=== PATIENT | male | born 1970 | race Caucasian/White ===

== ENCOUNTER 2021-04-24 17:55 | Outpatient (CLI) | payer OTHER, SELFPAY ==
[2021-04-24 18:25] VITALS: BP 159/105; PULSE 109; RESP 16; TEMP 37.1; O2SAT 100; BMI 24.3
[2021-04-24] MEDS: 0.9% Saline Lock 10 ML Syringe IV (18:32)
[2021-04-24 18:56] VITALS: BP 154/94; PULSE 97; RESP 16; TEMP 37.2; O2SAT 100
[2021-04-24 19:53] VITALS: BP 171/95; PULSE 94; RESP 16; TEMP 37.1; O2SAT 100
== END 2021-04-24 23:59 | disposition home or self-care (01) ==
LOC: MS3OUT 17:56 → MS3 17:57
PROVIDERS: Visit Provider Nurse Practitioner Adult Health
DX: Z23 Encounter for immunization (principal); E11.9 Type 2 diabetes mellitus without complications; U07.1 COVID-19
CPT/HCPCS: J7050; M0243; A4216; Q0244

== ENCOUNTER 2021-11-10 09:36 | Emergency (ER) | payer OTHER, SELFPAY ==
[2021-11-10 09:37] VITALS: BP 194/119; PULSE 96; RESP 18; TEMP 36.6; O2SAT 100; BMI 24.8
--- NOTE | 2021-11-10 09:54 | NURSING ---
NO OLD EKGS
--- NOTE | 2021-11-10 09:57 | RAD_ITS ---
STUDY: X-RAY CHEST REASON FOR EXAM: Male, 51 years old. Chest pain TECHNIQUE: Single AP portable view of the chest. COMPARISON: None. FINDINGS: EKG electrodes are seen. Hyperinflation. The lungs are clear. Scattered calcified granulomas. There is no demonstrated pleural abnormality. Normal size heart. Normal mediastinum and erin. Normal visualized pulmonary arteries. Normal visualized aortic arch and descending thoracic aorta. Normal visualized thoracic spine. Normal visualized ribs, clavicles, and shoulders. There is no demonstrated abnormality of the visualized soft tissue structures of the upper abdomen. RAD/Chest 1 View (Portable) IMPRESSION: Hyperinflation. The lungs are clear. Electronically Signed: Ramez Cheng MD at 10:41 EDT ,
--- NOTE | 2021-11-10 09:57 | EKG12_ITS ---
Test Reason : Blood Pressure : / mmHG Vent. Rate : 083 BPM Atrial Rate : 083 BPM P-R Int : 174 ms QRS Dur : 090 ms QT Int : 356 ms P-R-T Axes : 080 -44 069 degrees QTc Int : 418 ms Normal sinus rhythm Left axis deviation Abnormal ECG Confirmed by YUMIKO SALAS, BRODY ([id number]), rewrite editor DAVIS BENAVIDEZ ([id number]) on 11/12/2021 12:47:40 PM Referred By: Sherita Confirmed By:BRODY CALDERON MD
[2021-11-10 09:58] VITALS: O2SAT 99
[2021-11-10 10:10] LABS: Absolute Lymphocyte Count 1.45 X10^3/uL (0.83-4.51); Absolute Neutrophil Count 4.2 X10^3/uL (2.0-7.7); Basophil% 1.5 % (0-1); Eosinophil# 0.42 X10^3/uL; Eosinophils% 6.2 % (0-5); Hematocrit 46.3 % (40-54); Hemoglobin 17.2 g/dL (13.0-16.5); Lymphocyte # 1.45 X10^3/ul (0.83-4.51); Lymphocyte % 21.5 % (19-41); Mean Corp Hgb Conc 37.1 g/dL (32-36); Mean Corpuscular Hgb 33.7 pg (27.0-32.0); Mean Corpuscular Volume 90.8 fL (80-94); Mean Platelet Vol. 10.3 fl (6.2-12.0); Monocyte# 0.57 X10^3/uL; Monocyte% 8.5 % (0-10); NRBC Flagged by Analyzer 0 % (0-5); Neutrophil # 4.19 X10^3/uL (2.7-7.7); Neutrophil % 62.2 % (47-70); Platelet Count 258 K/mm3 (150-450); RBC Distribution Width CV 12.4 % (11.6-14.6); RBC Distribution Width SD 41.1 fl (35.1-43.9); White Blood Count 6.7 K/mm3 (4.4-11.0)
--- NOTE | 2021-11-10 10:17 | EDS_ITS ---
HPI History of Present Illness Chief Complaint: Chest Pain Informant: patient Onset/Context/Timing Onset: - (years) Timing: Intermittent and Lasts (seconds to minute or so) Quality: Positive for Aching Location: Left Chest (close to axilla but not into it; no radiation/migration) Current Severity: Gone Maximum Severity: Moderate Worsened By: Nothing Relieved By: Nothing Associated Symptoms: Positive for Dyspnea (a little when pain present); Negative for Nausea, Vomiting, Cough, Lightheadedness or Palpitations Narrative Narrative: Patient has been having these episodes of chest pain that seem random for 15 years, but yesterday they were more frequent and more severe, and he also had an episode this morning so he presents for evaluation. They are left lateral upper chest. He cannot detect a trigger that he can think of, they seem to be random. Often times he will go weeks without anything. He states it almost feels like a discomfort that you have after drinking a lot of caffeine. He also states in the past several weeks he has been having muscle fasciculations in the right calf without edema, some occasional muscle pains, and for a month or 2 some pain in his right buttock radiating into his hamstring but not below. He has a history of diabetes and peripheral neuropathy in both legs/feet. He is a smoker. No known history of heart problems had a negative stress test about 10 years ago or so. [facility] Medical History (Updated 11/10/21 @ 12:[address] Linwood Magallon MD) Diabetes Diabetes mellitus with peripheral autonomic neuropathy Home Medications insulin lispro 100 unit/mL subcutaneous cartridge (Humalog U-100 Insulin) 0 unit subcut TID 04/24/21 [History Last Taken Unknown] lisinopril 10 mg tablet 20 mg PO DAILY 04/24/21 [History Last Taken Unknown] Allergy/AdvReac Type Severity Reaction Status Date / Time codeine Allergy Severe unknown Verified 11/10/21 09:39 clindamycin AdvReac Severe C Diff Verified 11/10/21 09:39 Social History (Updated 11/10/21 @ 10:[address] Linwood Magallon MD) Smoking Status: Current every day smoker tobacco type: cigarettes ROS ROS ED Constitutional Constitutional ED: Denies chills or fever(s) Eyes Eyes: Denies change in vision or diplopia ENT ENT ED: Denies rhinorrhea or sore throat Cardiovascular Cardiovascular: Reports chest pain; Denies leg edema or palpitations Respiratory/Chest Respiratory/Chest: Reports dyspnea; Denies cough Gastrointestinal Gastrointestinal: Denies abdominal pain, diarrhea, nausea or vomiting Genitourinary Genitourinary ED: Denies dysuria or hematuria Musculoskeletal Musculoskeletal: Reports extremity pain; Denies back pain or neck pain Integumentary Denies abscess or rash Neurologic Neurologic: Denies headache(s), paresthesias or weakness Psychiatric Psychiatric: Denies anxiety or suicidal thoughts EXAM Physical Exam Const Vital Signs: 11/10/21 09:37 11/10/21 09:58 11/10/21 10:32 Temperature 97.9 F Temperature Source Temporal Pulse Rate 96 Respiratory Rate 18 Respiratory Effort Normal Non-Labored Blood Pressure 194/119 H Blood Pressure Mean 144 Pulse Ox 100 99 Oxygen Delivery Method Room Air Room Air 11/10/21 11:36 Temperature Temperature Source Pulse Rate 84 Respiratory Rate 14 Respiratory Effort Blood Pressure 165/99 H Blood Pressure Mean 121 Pulse Ox 98 Oxygen Delivery Method Room Air Positive well nourished and well developed General Appearance ED: well developed and NAD HEENT Reports moist mucous membranes normocephalic and atraumatic Eyes PERRL and EOMs intact bilaterally Neck full ROM and supple Resp normal respiratory effort and clear to auscultation bilaterally Cardio regular rate, regular rhythm and no murmurs GI non-tender and non-distended Auscultation: normoactive bowel sounds Palpation: soft Back/Spine no CVA tenderness Back/Spine Narrative: Negative straight leg raises bilaterally General Back: other FROM Extremity normal to inspection Extremity Narrative: No calf tenderness. No palpable cords. No varicosities noted. During exam, patient starts to have minor painless muscle fasciculations in his right calf. 2+/4 dorsalis pedis pulses bilaterally. General Extremety ED: Negative for edema, pulses abnormal or tenderness General Extremity: Negative for edema or pulses abnormal Neuro oriented x3, CN's II-XII intact bilaterally and no sensory deficits noted Sensorium / Orientation: awake and alert Motor Exam: strength 5/5 throughout Skin no rashes or lesions noted and no wounds Heart Score History: Slightly/Non-Suspicious ECG: Normal Age: >45 - <65 years Risk Factors: 1 or 2 Risk Factors Score: 2 MDM MDM MDM Narrative Medical decision making narrative: Patient's EKG is normal except for a left axis, he has no old 1 for comparison, but this is in my opinion very low likelihood to be cardiac. His chest x-ray is normal. Labs and troponin are normal. I reassured him. Regarding his other complaints, his right leg continues to twitch off-and-on in his calf, he has no edema or signs of DVT and I do not think that is what is causing this. I think it is more related to his peripheral neuropathy making his muscles fire, alternatively, I advised him he could eat foods with higher sources of calcium and potassium to see if that helps temporarily, regarding his right buttock pain I do not think it is sciatica, he could have myriad of issues here including sacroiliac dysfunction, piriformis syndrome, etc. and I recommend following up for possible referral to physical therapy if it continues, he is comfortable with this plan. Lab Data Attestation: I reviewed the patient's lab results. Labs: Laboratory Results - last 24 hr 11/10/21 11/10/21 09:55 09:55 WBC 6.7 RBC 5.10 Hgb 17.2 H Hct 46.3 MCV 90.8 MCH 33.7 H MCHC 37.1 H RDW Std Deviation 41.1 RDW Coeff of Thalia 12.4 Plt Count 258 MPV 10.3 Immature Gran % (Auto) 0.100 Neut % (Auto) 62.2 Lymph % (Auto) 21.5 Robertson % (Auto) 8.5 Eos % (Auto) 6.2 H Baso % (Auto) 1.5 H Absolute Neuts (auto) 4.2 Absolute Lymphs (auto) 1.45 Nucleated RBC % 0 Sodium 135 L Potassium 4.7 Chloride 103 Carbon Dioxide 27.0 Anion Gap 5 BUN 17 Creatinine 0.89 Estim Creat Clear Calc 101.39 Est GFR (MDRD) Af Amer 116 Est GFR (MDRD) Non-Af 96 BUN/Creatinine Ratio 19.2 Glucose 277 H Calcium 9.2 Troponin I High Sens 6 Radiography Chest X-Ray - ED: 1 View, Read by ED Physician, No Acute Disease and No Infiltrates Diagnostic Testing: Clinical Impression(s) from Imaging Studies Chest X-Ray 11/10/21 09:57 IMPRESSION: Hyperinflation. The lungs are clear. Electronically Signed: Ramez Cheng MD at 10:41 EDT , Rhythm Strip Rhythm Strip: Sinus Rhythm Rate: 83 Ectopy: None EKG Initial EKG: Attestation: I personally reviewed and interpreted this EKG as follows: Interpretation: Sinus Rhythm, No Acute Injury Pattern and LAFB (otherwise normal) Prior: No Prior Discharge Plan Triage Chief Complaint: Chest Pain ED Provider: Linwood Magallon Dx/Rx/DC Orders Clinical Impression: Left-sided chest pain, Right low back pain, Frequent fasciculation of muscle of extremity, Diabetic peripheral neuropathy Instructions: ED Chest Pain, Noncardiac, ED Sacroiliitis Prescriptions: No Action lisinopril [Prinivil] 10 mg Tablet 20 mg PO DAILY Humalog U-100 Insulin 100 unit/mL Cartridge 0 unit SUBCUT TID Rx Instructions: INSULIN PUMP [facility] [facility] [Primary Care Provider] - 1 Week if not improving Activity Restrictions/Additional Instructions: When next episode occurs if you feel it is not musculoskeletal or related to your pectoral musculature, I may try at least a 2-week trial of [id number] Prilosec or Nexium, 1 pill once a day. Disposition Disposition: Home, Self Care
[2021-11-10 10:31] LABS: Anion Gap 5 (5-15); BUN 17 mg/dL (7-18); BUN/Creat Ratio 19.2 RATIO (10-20); Calcium,Total 9.2 mg/dL (8.5-10.1); Chloride 103 mmol/L (98-107); Creatinine, Serum 0.89 mg/dL (0.70-1.30); EST Glomerular Filtration Rate 96 mL/min (>60); Est Glom Filt Rate - Afr Amer 116 mL/min (>60); Estimated Creatinine Clearance 101.39 ml/min; Glucose 277 mg/dL (74-106); Potassium 4.7 mmol/L (3.5-5.1); Sodium Level 135 mmol/L (136-145); Troponin-I HS (w/2H Reflex) 6 pg/mL (3.0-78.0)
[2021-11-10] MEDS: Aspirin 81 MG TAB.CHEW 324 MG PO (10:41)
[2021-11-10 11:36] VITALS: BP 165/99; PULSE 84; RESP 14; O2SAT 98
[2021-11-10 12:05] LABS: Reflex Troponin-HS? (from REC) Y
[2021-11-10 12:14] VITALS: BP 155/87; PULSE 79; RESP 16; O2SAT 97
== END 2021-11-10 12:15 | disposition home or self-care (01) ==
PROVIDERS: Emergency Provider Emergency Medicine; Visit Provider Emergency Medicine
DX: R07.9 Chest pain, unspecified (principal); E11.42 Type 2 diabetes mellitus with diabetic polyneuropathy; M54.50 Low back pain, unspecified; F17.210 Nicotine dependence, cigarettes, uncomplicated; R06.00 Dyspnea, unspecified
CPT/HCPCS: 71045; 80048; 84484; 85025; 93005; 99284; A4216